=== PATIENT | male | born 1950 | race Caucasian/White ===

== ENCOUNTER → 2016-05-27 | Outpatient (CLI) | payer OTHER | END | disposition home or self-care (01) | LOC: CFH 07:27 | PROVIDERS: ATTEND Family Medicine | DX: E11.65 Type 2 diabetes mellitus with hyperglycemia (principal); E78.2 Mixed hyperlipidemia; E55.9 Vitamin D deficiency, unspecified | CPT/HCPCS: 36415; 80061; 82306; 83036 ==

== ENCOUNTER 2018-04-04 23:19 | Emergency (ER) | payer MEDICARE ==
[~2018-04-04] VITALS: Ht 182.9 cm; Wt 140.4 kg
[2018-04-05] MEDS ORDERED: PROMETHAZINE 25 MG/ML, 1ML IM ONE
[2018-04-05] MEDS ORDERED: MORPHINE SULFATE 4 MG/ML, 1ML IVPush PRN
[2018-04-05] MEDS ORDERED: PROMETHAZINE 25 MG/ML, 1ML ONE (00:12)
[2018-04-05] MEDS ORDERED: ONDANSETRON 2MG/ML, 2ML ONE ×2 (00:12→02:23)
[2018-04-05] MEDS ORDERED: MORPHINE SULFATE 4 MG/ML, 1ML ONE ×2 (00:12→02:23)
[2018-04-05 00:19] LABS: BASOPHILS # (AUTO) 0.05 x10^3/uL (0-0.1); BASOPHILS % (AUTO) 1 % (0-1); EOSINOPHILS # (AUTO) 0.01 x10^3/uL (0-0.4); EOSINOPHILS % (AUTO) 0 % (1-7); LYMPHOCYTES # (AUTO) 1.02 x10^3/uL (1-3.4); LYMPHOCYTES % (AUTO) 10 % (22-44); MD NO; MEAN CORPUSCULAR HEMOGLOBIN 30.6 pg (27.5-34.5); MEAN CORPUSCULAR HGB CONC 34.1 g/dL (33.2-36.2); MEAN CORPUSCULAR VOLUME 89.5 fL (81-97); MEAN PLATELET VOLUME 8.5 fL (7.4-10.4); MONOCYTES # (AUTO) 0.83 x10^3/uL (0.2-0.8); MONOCYTES % (AUTO) 8 % (2-9); NEUTROPHILS # (AUTO) 8.64 x10^3/uL (1.8-6.8); NEUTROPHILS % (AUTO) 82 % (42-75); PLATELET COUNT 248 x10^3/uL (130-400); RED BLOOD COUNT 3.89 x10^6/uL (4.38-5.82); RED CELL DISTRIBUTION WIDTH 13.3 % (9.4-14.8)
[2018-04-05] MEDS ORDERED: PIOG30TA4 PO (00:25)
[2018-04-05] MEDS ORDERED: PANT40TA5 PO (00:25)
[2018-04-05] MEDS ORDERED: LOSA1TAB19 PO (00:25)
[2018-04-05] MEDS ORDERED: METF500T27 PO (00:25)
[2018-04-05 00:28] LABS: ALANINE AMINOTRANSFERASE 26 U/L (12-78); ALBUMIN 3.4 g/dL (3.4-5.0); ANION GAP 9 mmol/L (5-15); CALCIUM 8.7 mg/dL (8.5-10.1); CHLORIDE 101 mmol/L (98-107); CREATININE 1.71 mg/dL (0.7-1.3)
[2018-04-05 00:33] LABS: ALKALINE PHOSPHATASE 68 U/L (45-117); BILIRUBIN,TOTAL 0.7 mg/dL (0.2-1.0); TROPONIN I < 0.015 ng/mL (0.000-0.045)
[2018-04-05 01:13] VITALS: BP 139/69
--- NOTE | 2018-04-05 01:17 | NUR ---
pt ambulated to bathroom with steady gait
[2018-04-05 01:30] LABS: CULTURE INDICATED? NO; MICROSCOPIC AUTO
[2018-04-05] MEDS ORDERED: MORPHINE SULFATE 4 MG/ML, 1ML IVPush ONE (02:30)
[2018-04-05] MEDS ORDERED: ONDANSETRON 2MG/ML, 2ML IVPush ONE ×2 (02:30)
[2018-04-05] MEDS ORDERED: OMNIPAQUE 350 MG/ML, 100ML BOTTLE ONE (04:17)
== END 2018-04-05 02:55 | disposition home or self-care (01) ==
LOC: ED 23:33
DX: N13.2 Hydronephrosis with renal and ureteral calculous obstruction (principal)
CPT/HCPCS: 36415; 74177; 80053; 81001; 83690; 84484; 85025; 93005; 96372; 96374; 96375; 96376; 99284; J2405; J2550; Q9967

== ENCOUNTER → 2018-04-06 | Outpatient (CLI) | payer MEDICARE ==
[~2018-04-06] MED LIST: LOSA1TAB19 PO; METF500T27 PO; PANT40TA5 PO; PIOG30TA4 PO
== END | disposition home or self-care (01) ==
LOC: CFH 12:30
PROVIDERS: ATTEND Physician Assistant Surgical
DX: N20.1 Calculus of ureter (principal)
CPT/HCPCS: 74018

== ENCOUNTER 2018-04-11 15:31 | Inpatient (IN) | payer MEDICARE ==
[~2018-04-11] VITALS: Ht 182.9 cm; Wt 136.8 kg
--- NOTE | 2018-04-11 16:16 | NUR ---
pt presents to ED with c/o epigatric pain x 8 days, dx with kidney stones 2 days ago, reports diarrhea since last night. pt a&o, resps even and unlabored. pt instructed to provide clean catch ua, ambulating to bathroom at this time.
[2018-04-11] MEDS ORDERED: SODIUM CHLORIDE 0.9% 1,000ML IVBOLUS ONE (16:30)
[2018-04-11] MEDS ORDERED: ONDANSETRON 2MG/ML, 2ML IVPush ONE (16:30)
--- NOTE | 2018-04-11 17:04 | NUR ---
PIV attempted several times by this RN without success, HUGO Ellis at bedside to attempt PIV. urine collected and sent to lab.
[2018-04-11 17:16] LABS: BASOPHILS # (AUTO) 0.14 x10^3/uL (0-0.1); BASOPHILS % (AUTO) 2 % (0-1); EOSINOPHILS # (AUTO) 0.04 x10^3/uL (0-0.4); EOSINOPHILS % (AUTO) 1 % (1-7); LYMPHOCYTES # (AUTO) 1.81 x10^3/uL (1-3.4); LYMPHOCYTES % (AUTO) 22 % (22-44); MD NO; MEAN CORPUSCULAR HEMOGLOBIN 30.6 pg (27.5-34.5); MEAN CORPUSCULAR HGB CONC 34.1 g/dL (33.2-36.2); MEAN CORPUSCULAR VOLUME 89.7 fL (81-97); MEAN PLATELET VOLUME 7.8 fL (7.4-10.4); MONOCYTES % (AUTO) 7 % (2-9); NEUTROPHILS % (AUTO) 68 % (42-75); PLATELET COUNT 375 x10^3/uL (130-400); RED BLOOD COUNT 4.08 x10^6/uL (4.38-5.82); RED CELL DISTRIBUTION WIDTH 13.3 % (9.4-14.8)
[2018-04-11] MEDS ORDERED: MORPHINE SULFATE 4 MG/ML, 1ML ONE ×2 (17:16→17:48)
[2018-04-11] MEDS ORDERED: ONDANSETRON 2MG/ML, 2ML ONE (17:16)
[2018-04-11] MEDS: MORPHINE SULFATE 4 MG/ML, 1ML IVPush PRN ×2 (17:19→17:50)
--- NOTE | 2018-04-11 17:20 | NUR ---
piv placed by HUGO Ellis
--- NOTE | 2018-04-11 17:25 | NUR ---
pt medicated per emar, tolerated well. all monitors in place. pt a&o, resps even and unlabored. epigastric pain level 4/10 at this time. awaiting US and dispo.
[2018-04-11] MEDS ORDERED: ONDA4TAB13 SL (17:28)
[2018-04-11] MEDS ORDERED: TAMS-11 PO (17:28)
[2018-04-11] MEDS ORDERED: OXYC-432 PO (17:28)
[2018-04-11 17:29] LABS: ALANINE AMINOTRANSFERASE 20 U/L (12-78); ALBUMIN 3.3 g/dL (3.4-5.0); ANION GAP 11 mmol/L (5-15); CALCIUM 8.6 mg/dL (8.5-10.1); CHLORIDE 101 mmol/L (98-107); CREATININE 1.21 mg/dL (0.7-1.3)
[2018-04-11 17:33] LABS: ALKALINE PHOSPHATASE 70 U/L (45-117); BILIRUBIN,TOTAL 0.5 mg/dL (0.2-1.0); TOTAL PROTEIN 7.7 g/dL (6.4-8.2); TROPONIN I < 0.015 ng/mL (0.000-0.045)
[2018-04-11 17:41] LABS: MICROSCOPIC INDICATED
--- NOTE | 2018-04-11 17:53 | NUR ---
US complete. pt reports pain level now 2/10 to epigastric region. pt requests second dose morphine, pt medicated per emar, tolerated well. pt a&o, repss even and unlabored. vss. awaiting US/lab results and dispo.
[2018-04-11 18:24] LABS: CULTURE INDICATED? NO
--- NOTE | 2018-04-11 18:42 | NUR ---
pt resting on gurney, resps even and unlabored. pt denies pain. awaiting US results and dispo at this time.
--- NOTE | 2018-04-11 19:02 | NUR ---
Ultrasound results still not posted in EMR, radiology called for update on status of US read. RN awaiting return phonecall.
--- NOTE | 2018-04-11 19:38 | NUR ---
PT RESTING ON GURNEY, RESPS EVEN AND UNLABORED. NO COMPLAINT AT THIS TIME. ALL RESULTS BACK, CHART UP FOR RECHECK. AWAITING MD AND ORDERS AT THIS TIME. REPORT GIVEN TO ZAIN SABILLON.
[2018-04-11] MEDS ORDERED: FAMOTIDINE 20 MG TABLET ONE (20:04)
[2018-04-11] MEDS ORDERED: MAALOX/HYOSCYAMINE/LIDOCAINE 45 ML BTL ONE (20:04)
--- NOTE | 2018-04-11 20:20 | NUR ---
report taken from alysha Hennessy.
[2018-04-11] MEDS ORDERED: MAALOX/HYOSCYAMINE/LIDOCAINE 45 ML BTL PO ONE (20:30)
[2018-04-11] MEDS ORDERED: FAMOTIDINE 20 MG TABLET PO ONE (20:30)
--- NOTE | 2018-04-11 20:30 | NUR ---
pt is resting on gurney, pt awake, alert and oriented. resps even and unlabored. pt states that pain initally went away after GI cocktail admin, but is now returning. GERARDO Arenas notified.
--- NOTE | 2018-04-11 20:34 | NUR ---
GERARDO Arenas at bedside to reassess pt.
--- NOTE | 2018-04-11 21:03 | NUR ---
pt to be admitted for further GI workup. MICHELLE Cordero at bedside to admit pt. report given to receiving RN Claribel, awaiting transport to room 377 after hospitalist assessment complete.
[2018-04-11] MEDS ORDERED: PROMETHAZINE 25 MG/ML, 1ML IM PRN (21:30)
[2018-04-11] MEDS ORDERED: LIDODERM 5% PATCH TD PRN (21:30)
[2018-04-11] MEDS ORDERED: ENALAPRILAT 1.25 MG/ML, 2ML IVPush PRN (21:30)
[2018-04-11 21:42] VITALS: BP 148/79
[2018-04-11] MEDS: morphine SULFATE 10 MG/ML, 1ML IVPush PRN (21:55)
[2018-04-11] MEDS: NS + 20MEQ KCL 1,000 ML IV SCH (22:59)
[2018-04-12] MEDS ORDERED: ONDANSETRON ODT 4 MG SL PRN
[2018-04-12 02:25] VITALS: BP 125/69
[2018-04-12 05:38] LABS: BASOPHILS # (AUTO) 0.04 x10^3/uL (0-0.1); BASOPHILS % (AUTO) 1 % (0-1); EOSINOPHILS # (AUTO) 0.12 x10^3/uL (0-0.4); EOSINOPHILS % (AUTO) 2 % (1-7); LYMPHOCYTES % (AUTO) 26 % (22-44); MD NO; MEAN CORPUSCULAR HEMOGLOBIN 30.7 pg (27.5-34.5); MEAN CORPUSCULAR HGB CONC 33.6 g/dL (33.2-36.2); MEAN CORPUSCULAR VOLUME 91.3 fL (81-97); MEAN PLATELET VOLUME 7.9 fL (7.4-10.4); MONOCYTES # (AUTO) 0.53 x10^3/uL (0.2-0.8); MONOCYTES % (AUTO) 8 % (2-9); NEUTROPHILS # (AUTO) 4.36 x10^3/uL (1.8-6.8); NEUTROPHILS % (AUTO) 64 % (42-75); PLATELET COUNT 300 x10^3/uL (130-400); RED BLOOD COUNT 3.65 x10^6/uL (4.38-5.82)
[2018-04-12 05:41] LABS: ANION GAP 7 mmol/L (5-15); CHLORIDE 104 mmol/L (98-107); CREATININE 1.27 mg/dL (0.7-1.3)
[2018-04-12] MEDS: NS + 20MEQ KCL 1,000 ML IV SCH (06:58)
[2018-04-12] MEDS: morphine SULFATE 10 MG/ML, 1ML IVPush PRN ×2 (06:58→11:29)
[2018-04-12] MEDS: INSULIN LISPRO 100 UNITS/ML, PEN SQ-INSULIN SCH ×4 (07:00→21:00)
[2018-04-12 07:18] VITALS: BP 107/67
[2018-04-12] MEDS: FAMOTIDINE 20 MG/2 ML IVPush SCH ×2 (08:41→21:00)
[2018-04-12] MEDS ORDERED: ATOR20TA37 PO (08:41)
[2018-04-12] MEDS: LOSARTAN 50MG TABLET PO SCH (08:41)
[2018-04-12] MEDS: HYDROCHLOROTHIAZIDE 12.5 MG CAPSULE PO SCH (08:42)
[2018-04-12] MEDS: PANTOPROZOLE 40MG TABLET PO SCH (08:42)
[2018-04-12] MEDS: TAMSULOSIN 0.4 MG CAP.ER.24H PO SCH (08:42)
[2018-04-12] MEDS ORDERED: PIOGLITAZONE 15 MG TABLET PO SCH (09:00)
[2018-04-12 12:41] VITALS: BP 121/69
[2018-04-12] MEDS ORDERED: PROPOFOL 10 MG/ML, 20ML ONE (13:11)
[2018-04-12] MEDS: NS + 40MEQ KCL 1,000 ML IV SCH (14:30)
[2018-04-12] MEDS ORDERED: MAGNESIUM SULFATE PMX 2GM/50ML 50 ML IV ONE (17:00)
[2018-04-12 18:51] VITALS: BP 141/78
[2018-04-12 19:02] LABS: CLOSTRIDIUM DIFFICILE ANTIGEN NEGATIVE; CLOSTRIDIUM DIFFICILE TOXIN NEGATIVE (Negative)
[2018-04-13] MEDS: NS + 40MEQ KCL 1,000 ML IV SCH ×2 (00:21→10:07)
[2018-04-13 02:11] VITALS: BP 136/66
[2018-04-13 05:28] LABS: BASOPHILS # (AUTO) 0.03 x10^3/uL (0-0.1); BASOPHILS % (AUTO) 1 % (0-1); EOSINOPHILS # (AUTO) 0.12 x10^3/uL (0-0.4); EOSINOPHILS % (AUTO) 2 % (1-7); LYMPHOCYTES # (AUTO) 1.46 x10^3/uL (1-3.4); LYMPHOCYTES % (AUTO) 24 % (22-44); MD NO; MEAN CORPUSCULAR HEMOGLOBIN 30.9 pg (27.5-34.5); MEAN CORPUSCULAR VOLUME 91.1 fL (81-97); MEAN PLATELET VOLUME 7.8 fL (7.4-10.4); MONOCYTES # (AUTO) 0.47 x10^3/uL (0.2-0.8); MONOCYTES % (AUTO) 8 % (2-9); NEUTROPHILS # (AUTO) 3.95 x10^3/uL (1.8-6.8); NEUTROPHILS % (AUTO) 66 % (42-75); PLATELET COUNT 268 x10^3/uL (130-400); RED BLOOD COUNT 3.44 x10^6/uL (4.38-5.82); RED CELL DISTRIBUTION WIDTH 13.4 % (9.4-14.8)
[2018-04-13 05:42] LABS: ANION GAP 4 mmol/L (5-15); CHLORIDE 107 mmol/L (98-107)
[2018-04-13 05:47] LABS: CALCIUM 8.1 mg/dL (8.5-10.1); CREATININE 1.04 mg/dL (0.7-1.3)
[2018-04-13 06:18] LABS: HEMOGLOBIN A1C 8.1 % (4.2-6.3)
[2018-04-13] MEDS: INSULIN LISPRO 100 UNITS/ML, PEN SQ-INSULIN SCH ×4 (07:00→21:09)
[2018-04-13 07:56] VITALS: BP 139/72
[2018-04-13] MEDS: morphine SULFATE 10 MG/ML, 1ML IVPush PRN ×2 (08:36→16:32)
[2018-04-13] MEDS: TAMSULOSIN 0.4 MG CAP.ER.24H PO SCH (08:39)
[2018-04-13] MEDS: LOSARTAN 50MG TABLET PO SCH (08:39)
[2018-04-13] MEDS: HYDROCHLOROTHIAZIDE 12.5 MG CAPSULE PO SCH (08:40)
[2018-04-13] MEDS: PANTOPROZOLE 40MG TABLET PO SCH (08:40)
[2018-04-13] MEDS: FAMOTIDINE 20 MG/2 ML IVPush SCH (08:40)
[2018-04-13] MEDS ORDERED: OMNIPAQUE 350 MG/ML, 150 ML BOTTLE ONE (12:36)
[2018-04-13 12:53] VITALS: BP 147/70
[2018-04-13] MEDS ORDERED: NITROGLYCERIN 0.4 MG BOTTLE (25 TABS) SL PRN (13:00)
[2018-04-13] MEDS ORDERED: NITROGLYCERIN 0.4 MG/SPRAY SL PRN (13:00)
[2018-04-13] MEDS ORDERED: NITROGLYCERIN SINGLE TAB 0.4 MG SL PRN (13:00)
[2018-04-13 14:18] LABS: TROPONIN I < 0.015 ng/mL (0.000-0.045)
[2018-04-13 18:49] VITALS: BP 121/68
[2018-04-13] MEDS: SODIUM CHLORIDE FLUSH 10ML SYR IVF SCH (21:09)
[2018-04-13] MEDS: FAMOTIDINE 20 MG TABLET PO SCH (21:09)
[2018-04-14 02:35] VITALS: BP 128/71
[2018-04-14] MEDS: PANTOPROZOLE 40MG TABLET PO SCH (05:28)
[2018-04-14 06:07] LABS: CHOL/HDL RATIO 3.5; LDL/HDL RATIO 1.8 (0.5-3.0)
[2018-04-14 07:07] VITALS: BP 130/73
[2018-04-14] MEDS: INSULIN LISPRO 100 UNITS/ML, PEN SQ-INSULIN SCH ×4 (08:07→21:00)
[2018-04-14] MEDS: SODIUM CHLORIDE FLUSH 10ML SYR IVF SCH ×2 (08:08→21:00)
[2018-04-14] MEDS ORDERED: REGADENOSON 0.4 MG/5 ML SYRINGE ONE (08:26)
[2018-04-14] MEDS: LOSARTAN 50MG TABLET PO SCH (13:13)
[2018-04-14] MEDS: FAMOTIDINE 20 MG TABLET PO SCH ×2 (13:14→22:00)
[2018-04-14] MEDS: TAMSULOSIN 0.4 MG CAP.ER.24H PO SCH (13:14)
[2018-04-14] MEDS: HYDROCHLOROTHIAZIDE 12.5 MG CAPSULE PO SCH (13:14)
[2018-04-14 13:20] VITALS: BP 129/61
[2018-04-14 18:48] VITALS: BP 120/63
[2018-04-15 02:07] VITALS: BP 135/74
[2018-04-15] MEDS: PANTOPROZOLE 40MG TABLET PO SCH (05:21)
[2018-04-15 06:54] VITALS: BP 105/40
[2018-04-15] MEDS: INSULIN LISPRO 100 UNITS/ML, PEN SQ-INSULIN SCH ×2 (07:00→11:00)
[2018-04-15] MEDS: HYDROCHLOROTHIAZIDE 12.5 MG CAPSULE PO SCH (09:00)
[2018-04-15] MEDS: SODIUM CHLORIDE FLUSH 10ML SYR IVF SCH (09:00)
[2018-04-15] MEDS: LOSARTAN 50MG TABLET PO SCH (09:00)
[2018-04-15] MEDS: FAMOTIDINE 20 MG TABLET PO SCH (09:00)
[2018-04-15] MEDS: TAMSULOSIN 0.4 MG CAP.ER.24H PO SCH (09:00)
[2018-04-15] MEDS ORDERED: TAMS-11 PO (14:08)
[2018-04-15] MEDS ORDERED: FAMO20TA7 PO (14:08)
== END 2018-04-15 15:46 | disposition home or self-care (01) | DRG 394 ==
LOC: ED 15:57 → EDIP 20:41 → 3NE 21:34 → DCLOUNGE 04-15 15:35
PROVIDERS: ADMIT Hospitalist; ATTEND Hospitalist
PROC: 0DB78ZX Excision of Stomach, Pylorus, Via Natural or Artificial Opening Endoscopic, Diagnostic (ICD-10-PCS; 2018-04-12)
PROC: 0DB68ZX Excision of Stomach, Via Natural or Artificial Opening Endoscopic, Diagnostic (ICD-10-PCS; principal; 2018-04-12 13:30)
DX: K31.7 Polyp of stomach and duodenum (principal); Z68.41 Body mass index [BMI] 40.0-44.9, adult; I20.8 Other forms of angina pectoris; D64.9 Anemia, unspecified; R10.13 Epigastric pain; E11.65 Type 2 diabetes mellitus with hyperglycemia; E78.5 Hyperlipidemia, unspecified; E87.6 Hypokalemia; R19.7 Diarrhea, unspecified; I10 Essential (primary) hypertension; K21.9 Gastro-esophageal reflux disease without esophagitis; Z82.49 Family history of ischemic heart disease and other diseases of the circulatory system; Z79.899 Other long term (current) drug therapy; Z80.1 Family history of malignant neoplasm of trachea, bronchus and lung; Z87.442 Personal history of urinary calculi; G51.0 Bell's palsy; Z90.49 Acquired absence of other specified parts of digestive tract; Z79.1 Long term (current) use of non-steroidal anti-inflammatories (NSAID)
CPT/HCPCS: 36415; 74177; 76700; 78452; 80048; 80053; 80061; 81001; 82962; 83036; 83690; 83735; 84484; 85025; 87046; 87252; 87324; 87427; 88305; 89055; 93005; 93017; 93306; 96374; 96375; 96376; G0378; J2405; J2704; J2785; J3480; Q9967; A9502; C9898; J1815; J2270; J3475; J3490; J7030